=== PATIENT | female | born 1995 | race Caucasian/White ===

== ENCOUNTER → 2016-12-24 | Outpatient (CLI) | payer OTHER ==
[~2016-12-24] MED LIST: BACTROBAN22 GM TP; FLEXERIL10 M1 PO; IBUPROFEN800 MG PO; KEFLEX500 M1 PO; NAPROSYN500 MG PO; ORTHO-NOVUM 7/71 TAB DOB; SERTRALINE HCL50 MG PO
--- NOTE | ~2016-12-24 | MR2 ---
[facility] A Service of [facility] & [facility] RADIOLOGY TEXT RESULTS PATIENT: GABI COELHO LOCATION: [facility] : [birth year] UNIT #: [id number] AGE: [address]: MERY MOISE SEX: F ORDER DR: [id number] [address] [address] [id number] O MR#: [id number] Acc #: [id number] NAME: GABI COELHO : 1995 SEX: F STUDY DATE/TIME: 12/24/2016 11:35 UNIT: [facility] ROOM: STUDY DESCRIPTION: MR Abdomen WWo Cont Attending Physician: Mery Moise Referring Physician: Mery Moise Ordering Physician: Physician Non-Staff Primary Care Physician: Royce English M.D. MRI CENTER REPORT This report is preliminary unless electronic signature is present. EXAM MRI of the abdomen without and with contrast, 12/24/2016 INDICATION 21-year-old female with a history of abnormal CT performed 12/09/2015. The prior CT demonstrated a low density lesion in the dome of the liver. MRI has been requested for further assessment. No history of malignancy. Epigastric pain, nausea and vomiting in the past with interval resolution of symptoms. The patient is just now having the MRI performed following the abnormal CT approximately one year ago. TECHNIQUE Multiplanar, multisequence MRI of the abdomen was performed before and after the uneventful intravenous administration of 14 mL MultiHance contrast material. Correlation is made with CT 12/09/2015. FINDINGS MRI ABDOMEN: Included lung bases are clear. Aorta demonstrates no aneurysm or dissection. T1 signal intensity of the pancreas is maintained. No organomegaly. No evidence of pancreas divisum. No evidence of cholelithiasis or intra or extrahepatic ductal dilatation. No evidence of acute pancreatitis. There is a subtle T1 hypointense lesion in the dome of the liver. This is best visualized on early postcontrast images and measures only about 1.0 cm. There is faintly increased T2 signal intensity. No distinct diffusion correlate. Following contrast administration the lesion gradually becomes less conspicuous and is indistinguishable from adjacent liver parenchyma on 5 and 10-minute delayed phase images. No concerning washout kinetics. Imaging features are nonspecific. Based on the fact the lesion is stable to less conspicuous than on the prior CT and given patient age, this is most likely a benign lesion, perhaps an atypical hemangioma. This does not have typical imaging features for an area of STS. [facility] A Service of [facility] RADIOLOGY TEXT RESULTS PATIENT: GABI COELHO LOCATION: [facility] : [birth year] UNIT #: [id number] AGE: [address]: MERY MOISE SEX: F ORDER DR: focal nodular hyperplasia or hepatic adenoma or vascular shunt. Given stability over the past year, an interval followup MRI in 6-12 months is recommended to confirm continued expected stability. Spleen and adrenal glands are unremarkable. Kidneys unremarkable. Pancreas normal. Gallbladder unremarkable. Liver otherwise unremarkable. Hepatic vasculature unremarkable. No adenopathy. Diffusion-weighted images demonstrate no additional finding. Marrow signal unremarkable. IMPRESSION 1. MRI demonstrates an approximately 1.0 cm nonspecific lesion in the dome of the right hepatic lobe. Imaging features are entirely nonspecific but this may represent an atypical hemangioma. No concerning washout kinetics. It is also stable for over one year and therefore likely benign. Suggest an interval followup MRI 6-12 months to document continued expected stability. 2. The remainder of the examination is essentially negative. Dictated by... Everardo Meyers M.D. THIS IS AN ELECTRONICALLY VERIFIED REPORT Everardo Meyers M.D. at 12/25/2016 1:14 PM Randee TD: 12/25/2016 10:35 JOB #: [id number] MRI CENTER REPORT Page 1 of 1
== END | disposition home or self-care (01) ==
LOC: SMRI 11:26
DX: D49.0 Neoplasm of unspecified behavior of digestive system (principal); K76.9 Liver disease, unspecified
CPT/HCPCS: 74183; A9581